=== PATIENT | female | born 1965 | race Caucasian/White ===

== ENCOUNTER 2016-11-18 17:36 | Emergency (ER) | payer MEDICARE, MEDICAID ==
--- NOTE | 2016-11-18 18:02 | ER Document Report ---
ED Medical Screen (RME) - General Chief Complaint: Chest Pain Stated Complaint: CHEST PAIN, BACK PAIN Notes: Patient is a 51-year-old female, past medical history PE (on Xarelto), HTN, seizures (compliant with Keppra), presents with intermittent left-sided chest pain and pressure that started this morning. She is also feeling like she is having difficulty catching her breath. PE: RRR. Lungs CTAB. No respiratory distress. Strong distal pulses. Left arm in splint (Ortho appointment tomorrow) I have greeted and performed a rapid initial assessment of this patient. A comprehensive ED assessment and evaluation of the patient, analysis of test results and completion of the medical decision making process will be conducted by additional ED providers. TRAVEL OUTSIDE OF THE [place] IN LAST 30 DAYS: No - Related Data Allergies/Adverse Reactions: meperidine HCl [From Demerol] Allergy (Verified 11/18/16 17:50) RASH, ITCHY AT SIGHT morphine [Morphine] Allergy (Verified 11/18/16 17:50) ITCHY AT SIGHT Past Medical History - Social History Family history: Reviewed & Not Pertinent - Past Medical History Cardiac Medical History: Reports: Hx Hypertension, Hx Pulmonary Embolism - x4 Renal/ Medical History: Denies: Hx Peritoneal Dialysis Psychiatric Medical History: Reports: Hx Bipolar Disorder, Hx Depression Past Surgical History: Reports: Hx Abdominal Surgery, Hx Bowel Surgery, Hx Section, Hx Cholecystectomy, Hx Gastric Bypass Surgery, Hx Orthopedic Surgery. Denies: Hx Hysterectomy - Immunizations Hx Diphtheria, Pertussis, Tetanus Vaccination: No Physical Exam - Vital signs Vitals: Temp Pulse Resp BP Pulse Ox 98.6 F 83 16 164/108 H 96 11/18/16 17:51 11/18/16 17:51 11/18/16 17:51 11/18/16 17:51 11/18/16 17:51 Course - Vital Signs Vital signs: Temp Pulse Resp BP Pulse Ox 98.6 F 83 16 164/108 H 96 11/18/16 17:51 11/18/16 17:51 11/18/16 17:51 11/18/16 17:51 11/18/16 17:51
[2016-11-18 18:55] LABS: ABSOLUTE BASOPHILS # (AUTO) 0.1 10^3/uL (0.0-0.2); ABSOLUTE LYMPHOCYTES (AUTO) 2.3 10^3/uL (0.5-4.7); ABSOLUTE MONOCYTES (AUTO) 0.9 10^3/uL (0.1-1.4); BASOPHILS % (AUTO) 0.5 % (0-2); EOSINOPHILS % (AUTO) 0.4 % (0-6); HEMATOCRIT 27.8 % (36.0-47.0); HEMOGLOBIN 8.4 g/dL (12.0-15.5); HGB HCT DIFFERENCE -2.6; LYMPHOCYTES % (AUTO) 17.2 % (13-45); MEAN CORPUSCULAR HEMOGLOBIN 22.4 pg (27.0-33.4); MEAN CORPUSCULAR VOLUME 75 fl (80-97); MONOCYTES % (AUTO) 6.7 % (3-13); RED BLOOD COUNT 3.73 10^6/uL (3.72-5.28); RED CELL DISTRIBUTION WIDTH 19.5 % (11.5-14.0); SEGMENTED NEUTROPHILS % (AUTO) 75.2 % (42-78); WHITE BLOOD COUNT 13.3 10^3/uL (4.0-10.5)
[2016-11-18 19:07] LABS: ALANINE AMINOTRANSFERASE 25 U/L (9-52); ALBUMIN 3.5 g/dL (3.5-5.0); ALKALINE PHOSPHATASE 127 U/L (38-126); ANION GAP 10 (5-19); ASPARTATE AMINO TRANSFERASE 17 U/L (14-36); BILIRUBIN,DIRECT 0.3 mg/dL (0.0-0.4); BILIRUBIN,TOTAL 0.3 mg/dL (0.2-1.3); BLOOD UREA NITROGEN 12 mg/dL (7-20); CALCIUM 8.7 mg/dL (8.4-10.2); CARBON DIOXIDE 20 mmol/L (22-30); CHLORIDE 110 mmol/L (98-107); CREATINE KINASE 37 U/L (30-135); CREATININE RESULT 0.93 mg/dL (0.52-1.25); GLUCOSE 94 mg/dL (75-110); LIPASE 92.1 U/L (23-300); POTASSIUM 4.2 mmol/L (3.6-5.0)
[2016-11-18 19:12] LABS: PARTIAL THROMBOPLASTIN TIME 25.8 SEC (23.5-35.8)
[2016-11-18 19:22] LABS: TROPONIN I < 0.012 ng/mL
[2016-11-18] MEDS ORDERED: LEVETIRACETAM 500 MG TABLET PO ONE (19:23)
[2016-11-18] MEDS ORDERED: DIAZEPAM INJ 10 MG/2 ML DISP.SYRIN IV ONE (19:24)
--- NOTE | 2016-11-18 19:27 | ER Document Report ---
ED General - General Chief Complaint: Chest Pain Stated Complaint: CHEST PAIN, BACK PAIN Time Seen by Provider: 11/18/16 18:08 Notes: Patient is a 51 year old male that comes to the ED for chief complaint of left- sided chest pain radiating down to the lower part of her left breast and towards the axilla and also in the left upper back. Symptoms started to become noticeable this morning, pain is persistent. She states that she feels a little bit short of breath as well. She denies injury to the area, nausea or vomiting, although she is wearing a splint on the left arm from a recent left arm fracture a few days ago. Follow-up with orthopedics tomorrow. She does have a history of pulmonary embolism 7, is compliant with Xarelto, also has a history of seizures and takes Keppra and Valium. She states she has had neither Keppra or Valium and she is "feeling kind of strange like a seizure might come on at the moment". She denies fever or chills, cough. S he denies history of MS, denies smoking. She denies Family history of MS. TRAVEL OUTSIDE OF THE [place] IN LAST 30 DAYS: No - Related Data Allergies/Adverse Reactions: meperidine HCl [From Demerol] Allergy (Verified 11/18/16 17:50) RASH, ITCHY AT SIGHT morphine [Morphine] Allergy (Verified 11/18/16 17:50) ITCHY AT SIGHT Past Medical History - General Information source: Patient - Social History Smoking Status: Never Smoker Chew tobacco use (# tins/day): No Frequency of alcohol use: Occasional Drug Abuse: Marijuana Family History: None Patient has suicidal ideation: No Patient has homicidal ideation: No - Past Medical History Cardiac Medical History: Reports: Hx Hypertension, Hx Pulmonary Embolism - x4 Neurological Medical History: Reports: Hx Seizures Renal/ Medical History: Denies: Hx Peritoneal Dialysis Psychiatric Medical History: Reports: Hx Bipolar Disorder, Hx Depression Past Surgical History: Reports: Hx Abdominal Surgery, Hx Bowel Surgery, Hx Section, Hx Cholecystectomy, Hx Gastric Bypass Surgery, Hx Orthopedic Surgery. Denies: Hx Hysterectomy - Immunizations Hx Diphtheria, Pertussis, Tetanus Vaccination: No Hx Pneumococcal Vaccination: 05/20/00 Review of Systems - Review of Systems Constitutional: No symptoms reported EENT: No symptoms reported Cardiovascular: See HPI Respiratory: No symptoms reported Gastrointestinal: No symptoms reported Genitourinary: No symptoms reported Female Genitourinary: No symptoms reported Musculoskeletal: See HPI Skin: No symptoms reported Hematologic/Lymphatic: No symptoms reported Neurological/Psychological: See HPI Physical Exam - Vital signs Vitals: Temp Pulse Resp BP Pulse Ox 98.6 F 83 16 164/108 H 96 11/18/16 17:51 11/18/16 17:51 11/18/16 17:51 11/18/16 17:51 11/18/16 17:51 Interpretation: Normal - General General appearance: Appears well In distress: None - HEENT Head: Normocephalic, Atraumatic Eyes: Normal Pupils: PERRL - Respiratory Respiratory status: No respiratory distress Chest status: Tender - tender over left pectoralis muscle extending toward the left axillary area, no induration or fluctuance, no other abnormal Breath sounds: Normal. No: Decreased air movement, Wheezing Chest palpation: Normal - Cardiovascular Rhythm: Regular Heart sounds: Normal auscultation, S1 appreciated, S2 appreciated Murmur: No - Abdominal Inspection: Normal Distension: No distension Bowel sounds: Normal Tenderness: Nontender Organomegaly: No organomegaly - Back Back: Normal, Nontender - Extremities General upper extremity: Nontender, Normal ROM, Normal strength, Other - Upper extremity with a splint over the entire forearm and up to the hand General lower extremity: Normal inspection, Nontender, Normal color, Normal ROM , Normal temperature, Normal weight bearing. No: González's sign - Neurological Neuro grossly intact: Yes Cognition: Normal Orientation: AAOx4 [place] Coma Scale Eye Opening: Spontaneous Joanie Coma Scale Verbal: Oriented Joanie Coma Scale Motor: Obeys Commands [place] Coma Scale Total: 15 Speech: Normal Motor strength normal: LUE, RUE, LLE, RLE Sensory: Normal - Psychological Associated symptoms: Normal affect, Normal mood - Skin Skin Temperature: Warm Skin Moisture: Dry Skin Color: Normal Course - Re-evaluation Re-evalutation: Symptoms ongoing over 12 hours, cardiac enzymes negative. Leukocytosis, mildly elevated specific gravity, bicarbonate slightly low. Giving IV fluids. No T- wave inversions or ST segment changes in consecutive leads, EKG shows sinus rhythm. There is tenderness with palpation over the left pectoral, axillary, and upper back areas. Patient is wearing a heavy splint on the left arm. I suspect this is related, suspect musculoskeletal soreness from the extra weight. I discussed this with patient, she insists that she is worried that she has additional clots or worsening findings and she has some intermittent shortness of breath at times. She states she is not comfortable with this answer. Chest x-ray is unremarkable. CTA performed, shows no acute or new abnormality. No concerning emergent pathology, patient is to continue on Xarelto, discussed orthopedic follow-up, discussed wearing of a sling, patient states she had a sling but she just is not wearing but now she will start wearing it because she realizes it will probably help. Patient discussed with Dr. Cuellar. He was also initially given seizure medications, discussed compliance with this , discussed compliance with her blood pressure medications which she admits she is also not taking, discussed the long-term effects of this. Patient states understanding and agreement. - Vital Signs Vital signs: Temp Pulse Resp BP Pulse Ox 98.6 F 83 20 165/102 H 97 11/18/16 17:51 11/18/16 17:51 11/19/16 01:01 11/19/16 01:01 11/19/16 01:01 - Laboratory Result Diagrams: 11/18/16 18:47 11/18/16 18:47 Laboratory results interpreted by me: 11/18/16 11/18/16 18:47 18:47 WBC 13.3 H Hgb 8.4 L Hct 27.8 L MCV 75 L MCH 22.4 L MCHC 30.0 L RDW 19.5 H Absolute Neutrophils 10.0 H Chloride 110 H Carbon Dioxide 20 L Alkaline Phosphatase 127 H Discharge - Discharge Clinical Impression: Chest wall pain Chest pain Qualifiers: Chest pain type: unspecified Qualified Code(s): R07.9 - Chest pain, unspecified Condition: Stable Disposition: HOME, SELF-CARE Additional Instructions: No new or concerning finding is seen with your imaging. Continue rehydration. Wear your sling, apply heat to your chest wall and back for soreness. Take your prescribed medications for both seizure and blood pressure as we discussed. Follow up with Orthopedics tomorrow. Return to the ED for any concerning or worsening symptoms.
[2016-11-18] MEDS ORDERED: DIAZEPAM INJ 10 MG/2 ML DISP.SYRIN ONE (19:44)
[2016-11-18 19:47] LABS: MAGNESIUM 2.1 mg/dL (1.6-2.3)
[2016-11-18 19:48] LABS: ALCOHOL < 10 mg/dL (NONE DETECTED)
[2016-11-18] MEDS ORDERED: ASPIRIN 81 MG TABLET, CHEWABLE PO ONE (19:54)
--- NOTE | 2016-11-18 20:05 | RADIOLOGY REPORT (SQ) ---
EXAM DESCRIPTION: CHEST SINGLE VIEW COMPLETED DATE/TIME: 11/18/2016 7:48 pm REASON FOR STUDY: chest pain COMPARISON: 2015 NUMBER OF VIEWS: One view. TECHNIQUE: Single frontal radiographic view of the chest acquired. LIMITATIONS: None. FINDINGS: LUNGS AND PLEURA: No opacities, masses or pneumothorax. No pleural effusion. MEDIASTINUM AND HILAR STRUCTURES: No masses. Contour normal. HEART AND VASCULAR STRUCTURES: Heart normal in size. Normal vasculature. BONES: No acute findings. HARDWARE: None in the chest. OTHER: No other significant finding. IMPRESSION: NO SIGNIFICANT RADIOGRAPHIC FINDING IN THE CHEST. TECHNICAL DOCUMENTATION: JOB ID: [id number] [employer]- All Rights Reserved
[2016-11-18] MEDS ORDERED: NORMAL SALINE 1000 ML 1,000 ML IV ONE (20:18)
[2016-11-18] MEDS ORDERED: OXYCODONE-ACETAMINOPHEN 5-325 MG TABLET PO ONE (20:46)
[2016-11-18] MEDS ORDERED: ONDANSETRON HCL INJ/PF 4 MG/2 ML SDV IV ONE (20:46)
--- NOTE | 2016-11-18 21:42 | EKG REPORT ---
SEVERITY:- BORDERLINE ECG - SINUS RHYTHM VENTRICULAR PREMATURE COMPLEX BORDERLINE T ABNORMALITIES, ANTERIOR LEADS : Confirmed by: Michelle Ramirez 18-Nov-2016 21:42:09
[2016-11-18 22:11] LABS: APPEARANCE,URINE SLIGHTLY-CLOUDY; BILIRUBIN,URINE NEGATIVE (NEGATIVE); CALCIUM OXALATE CRYSTALS,URINE TOO NUMEROUS TO CNT /HPF; GLUCOSE, URINE NEGATIVE (NEGATIVE); KETONES,URINE NEGATIVE (NEGATIVE); LEUKOCYTE ESTERASE,URINE NEGATIVE (NEGATIVE); NITRITE,URINE NEGATIVE (NEGATIVE); PROTEIN,URINE NEGATIVE (NEGATIVE); URINE SPECIFIC GRAVITY 1.021; UROBILINOGEN,URINE NEGATIVE mg/dL (<2.0)
--- NOTE | 2016-11-18 23:47 | RADIOLOGY REPORT (SQ) ---
EXAM DESCRIPTION: CTA CHEST COMPLETED DATE/TIME: 11/18/2016 11:31 pm REASON FOR STUDY: left sided chest pain, short of breath, hx PE COMPARISON: 2016 TECHNIQUE: CT scan of the chest performed using helical scanning technique with dynamic intravenous contrast injection. Images reviewed with lung, soft tissue and bone windows. Reconstructed coronal and sagittal MPR images reviewed. Additional 3 dimensional post-processing performed to develop Maximal Intensity Projection images (NM P). All images stored on PACS. All CT scanners at this facility use dose modulation, iterative reconstruction, and/or weight based d osing when appropriate to reduce radiation dose to as low as reasonably achievable (ALARA). [facility]: Dose Right [facility]: CareDose [facility]: Dose Right [facility]: Teradose 4D [facility]: AntCor CONTRAST TYPE AND DOSE: contrast/concentration: Isovue 370.00 mg/ml; Total Contrast Delivered: 75.0 ml; Total Saline Delivered: 110.0 ml RENAL FUNCTION: Creatinine 0.9 RADIATION DOSE: Up-to-date CT equipment and radiation dose reduction techniques were employed. CTDIv ol: 13.2 - 19.2 mGy. DLP: 689 mGy-cm. . LIMITATIONS: None. FINDINGS: LUNGS AND PLEURA: Small dependent bilateral pleural effusions. Mild areas of subsegmental atelectasis. AORTA AND GREAT VESSELS: No aneurysm or dissection. HEART: Mild pericardial fluid. PULMONARY ARTERIES: No new thrombus. Minimal persistent chronic thrombus in the left lower lobe. Th is looks nonprogressive. HILAR AND MEDIASTINAL STRUCTURES: No identified masses or abnormal nodes. HARDWARE: None in the chest. UPPER ABDOMEN: No developing mass or evidence of bowel obstruction. THYROID AND OTHER SOFT TISSUES: No masses. No adenopathy. BONES: No acute or significant finding. 3D MIPS: Confirm above findings. OTHER: No other significant finding. IMPRESSION: 1. No acute PE. 2. 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 TECHNICAL DOCUMENTATION: JOB ID: [id number] Quality ID # [id number]: Final reports with documentation of one or more dose reduction techniques (e.g., Au tomated exposure control, adjustment of the mA and/or kV according to patient size, use of iterative reconstruction technique) 2010 [employer]- All Rights Reserved
[2016-11-19] MEDS ORDERED: HYDROCODONE/ACETAMINOPHEN 5-325 MG 6 TAB/DSPK PO PRN (00:08)
[2016-11-19 01:17] VITALS: BP 165/102
== END 2016-11-19 01:17 | disposition home or self-care (01) ==
LOC: ER 17:36
DX: R07.89 Other chest pain (principal); I26.99 Other pulmonary embolism without acute cor pulmonale; Z79.01 Long term (current) use of anticoagulants; D72.829 Elevated white blood cell count, unspecified; R06.02 Shortness of breath; S42.302D Unspecified fracture of shaft of humerus, left arm, subsequent encounter for fracture with routine healing; X58.XXXD Exposure to other specified factors, subsequent encounter; I10 Essential (primary) hypertension; T50.906A Underdosing of unspecified drugs, medicaments and biological substances, initial encounter; T42.4X6A Underdosing of benzodiazepines, initial encounter; T42.6X6A Underdosing of other antiepileptic and sedative-hypnotic drugs, initial encounter; Z91.14 Patient's other noncompliance with medication regimen; Z79.899 Other long term (current) drug therapy; Z88.5 Allergy status to narcotic agent
CPT/HCPCS: 93005; 99285; 96361; 96374; 96375; 36415; 80307; 82550; 83690; 83735; 85025; 85610; 85730; 80053; 81001; 84484; 83880; 71010; 71275; 93010; A9270 ×4; J3360; J2405; J7030

== ENCOUNTER 2016-12-09 15:51 | Emergency (ER) | payer MEDICARE, MEDICAID ==
[2016-12-09] MEDS ORDERED: ASPIRIN 81 MG TABLET, CHEWABLE PO ONE (16:16)
--- NOTE | 2016-12-09 16:34 | RADIOLOGY REPORT (SQ) ---
EXAM DESCRIPTION: CHEST SINGLE VIEW COMPLETED DATE/TIME: 12/09/2016 4:25 pm REASON FOR STUDY: cp COMPARISON: February 2016 EXAM PARAMETERS: NUMBER OF VIEWS: One view. TECHNIQUE: Single frontal radiographic view of the chest acquired. RADIATION DOSE: NA LIMITATIONS: None. FINDINGS: LUNGS AND PLEURA: No opacities, masses or pneumothorax. No pleural effusion. MEDIASTINUM AND HILAR STRUCTURES: No masses. Contour normal. HEART AND VASCULAR STRUCTURES: Heart normal in size. Normal vasculature. BONES: No acute findings. HARDWARE: None in the chest. OTHER: No other significant finding. IMPRESSION: NO ACUTE RADIOGRAPHIC FINDING IN THE CHEST. TECHNICAL DOCUMENTATION: JOB ID: [id number]
[2016-12-09 17:42] LABS: APPEARANCE,URINE SLIGHTLY-CLOUDY; BILIRUBIN,URINE NEGATIVE (NEGATIVE); GLUCOSE, URINE NEGATIVE (NEGATIVE); KETONES,URINE NEGATIVE (NEGATIVE); LEUKOCYTE ESTERASE,URINE TRACE (NEGATIVE); NITRITE,URINE NEGATIVE (NEGATIVE); PROTEIN,URINE NEGATIVE (NEGATIVE); URINE SPECIFIC GRAVITY 1.012; UROBILINOGEN,URINE NEGATIVE mg/dL (<2.0)
[2016-12-09] MEDS ORDERED: NITROGLYCERIN 0.4 MG/TAB 25 TAB/BOTTLE SL PRN (18:36)
[2016-12-09 18:45] LABS: ABSOLUTE BASOPHILS # (AUTO) 0.1 10^3/uL (0.0-0.2); ABSOLUTE EOSINOPHILS # (AUTO) 0.1 10^3/uL (0.0-0.6); ABSOLUTE LYMPHOCYTES (AUTO) 2.5 10^3/uL (0.5-4.7); ABSOLUTE MONOCYTES (AUTO) 0.7 10^3/uL (0.1-1.4); BASOPHILS % (AUTO) 1.6 % (0-2); HEMATOCRIT 29.3 % (36.0-47.0); HEMOGLOBIN 9.1 g/dL (12.0-15.5); LYMPHOCYTES % (AUTO) 26.4 % (13-45); MEAN CORPUSCULAR HEMOGLOBIN 23.4 pg (27.0-33.4); MEAN CORPUSCULAR HGB CONC 31.1 g/dL (32.0-36.0); MEAN CORPUSCULAR VOLUME 75 fl (80-97); MONOCYTES % (AUTO) 7.8 % (3-13); RED BLOOD COUNT 3.89 10^6/uL (3.72-5.28); RED CELL DISTRIBUTION WIDTH 18.9 % (11.5-14.0); SEGMENTED NEUTROPHILS % (AUTO) 63.2 % (42-78); WHITE BLOOD COUNT 9.5 10^3/uL (4.0-10.5)
[2016-12-09] MEDS ORDERED: KETOROLAC TROMETHAMINE INJ/PF 30 MG/1 ML SDV IV ONE (18:50)
[2016-12-09] MEDS ORDERED: NORMAL SALINE 1000 ML 1,000 ML IV ONE (18:50)
--- NOTE | 2016-12-09 18:50 | ER Document Report ---
ED General - General Chief Complaint: Weakness Stated Complaint: WEAKNESS Time Seen by Provider: 12/09/16 18:20 Notes: Patient is a 51-year-old female with a past medical history of recurrent pulmonary emboli, currently on rivaroxaban who presents complaining of generalized weakness for the past 4 days. Patient states that she is unable to ambulate, sit up in bed, or perform any of her activities of daily living secondary to being so weak. She denies a history of similar symptoms in the past. Nothing improves or worsens her symptoms. Of note, patient is easily able to sit up in bed when I asked her to do so on initial history taking. She is also able to lift her head, arms, and even stand at the bedside during initial history taking without any difficulty whatsoever. She has not seen her primary care doctor regarding today's concerns. She also notes that she has a chronic left-sided chest pain below her breast. States that this is been present for "weeks" is not changed today and is not the reason for her visit to the emergency department. 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 Nothing improves or worsens that pain and she denies any radiation of that pain into her arms, jaw or back. She denies any associated shortness of breath nausea or vomiting. TRAVEL OUTSIDE OF THE [place] IN LAST 30 DAYS: No - Related Data Allergies/Adverse Reactions: meperidine HCl [From Demerol] Allergy (Verified 11/18/16 17:50) RASH, ITCHY AT SIGHT morphine [Morphine] Allergy (Verified 11/18/16 17:50) ITCHY AT SIGHT Past Medical History - General Information source: Patient - Social History Smoking Status: Never Smoker Chew tobacco use (# tins/day): No Frequency of alcohol use: Occasional Drug Abuse: None Lives with: Spouse/Significant other Family History: Reviewed & Not Pertinent - Past Medical History Cardiac Medical History: Reports: Hx Hypertension, Hx Pulmonary Embolism - x4 Neurological Medical History: Reports: Hx Seizures Renal/ Medical History: Denies: Hx Peritoneal Dialysis Psychiatric Medical History: Reports: Hx Bipolar Disorder, Hx Depression Past Surgical History: Reports: Hx Abdominal Surgery, Hx Bowel Surgery, Hx Section, Hx Cholecystectomy, Hx Gastric Bypass Surgery, Hx Orthopedic Surgery. Denies: Hx Hysterectomy - Immunizations Hx Diphtheria, Pertussis, Tetanus Vaccination: No Hx Pneumococcal Vaccination: 05/20/00 Review of Systems - Review of Systems Notes: Constitutional: Negative for fever. HENT: Negative for sore throat. Eyes: Negative for visual changes. Cardiovascular: Positive for chest pain. Respiratory: Negative for shortness of breath. Gastrointestinal: Negative for abdominal pain, vomiting or diarrhea. Genitourinary: Negative for dysuria. Musculoskeletal: Negative for back pain. Skin: Negative for rash. Neurological: Negative for headaches, weakness or numbness. 10 point ROS negative except as marked above and in HPI. Physical Exam - Vital signs Vitals: Temp Pulse Resp BP Pulse Ox 99.2 F 83 17 123/87 H 99 12/09/16 15:59 12/09/16 15:59 12/09/16 15:59 12/09/16 15:59 12/09/16 15:59 Interpretation: Normal Notes: PHYSICAL EXAMINATION: GENERAL: Well-appearing, well-nourished and in no acute distress. HEAD: Atraumatic, normocephalic. EYES: Pupils equal round and reactive to light, extraocular movements intact, sclera anicteric, conjunctiva are normal. ENT: nares patent, oropharynx clear without exudates. Moist mucous membranes. NECK: Normal range of motion, supple without lymphadenopathy LUNGS: Breath sounds clear to auscultation bilaterally and equal. No wheezes rales or rhonchi. HEART: Regular rate and rhythm without murmurs ABDOMEN: Soft, nontender, normoactive bowel sounds. No guarding, no rebound. No masses appreciated. EXTREMITIES: Normal range of motion, no pitting or edema. No cyanosis. NEUROLOGICAL: Face symmetric. Tongue protrudes midline. Extraocular motions intact. Pupils are 2 mm and equally reactive. Normal speech, normal gait. 5 out of 5 strength in both the distal and proximal upper and lower extremities bilaterally. Sensation is grossly intact throughout. Finger to nose testing normal. Pronator drift normal. PSYCH: Normal mood, normal affect. SKIN: Warm, Dry, normal turgor, no rashes or lesions noted. Course - Re-evaluation Re-evalutation: 12/09/16 18:50 Presentation and an overall well-appearing patient in no acute distress who complains of generalized weakness. At time of evaluation, patient's vitals are within normal limits. Contrary to patient's report, she very clearly can ambulate, sit up in bed and perform activities that she states she cannot do. Specifically, asked patient how over the past several days she has been getting to the restroom and she does admit that she has been ambulating with assistance. Physical examination without focal findings. No neurologic deficits. They deny any chest pain, shortness of breath, nausea, vomiting, or diarrhea. No dysuria or fever. Basic laboratories including and urinalysis are unremarkable. Troponin is also negative. Patient does complain of recurrent left-sided chest pain which is chronic in nature. She had a CTA of her chest less than 1 month ago for the same concern which was noted to be normal given her history of recurrent PEs. She has no tachycardia, tachypnea, hypoxemia, and is not ready on rivaroxaban making a diagnosis of a new acute PE highly unlikely. Low clinical suspicion for ACS, occult pneumonia, acute intra- abdominal pathology, stroke, or transient ischemic attack based on clinical history, examination, and laboratories. They have tolerated oral intake without difficulty. Of note, patient was disappointed when I gave her Toradol and acetaminophen for her pain. She was asking for "something stronger" repeatedly through the IV. I declined to provide this medication informed her there is no indication for such medication at this time. I have discussed the importance of close outpatient follow-up as well as the need to return to emergency room immediately should they have any new or worsening symptoms. At this time will discharge with return precautions and follow-up recommendations. Verbal discharge instructions given a the bedside and opportunity for questions given. Medication warnings reviewed. Patient is in agreement with this plan and has verbalized understanding of return precautions and the need for primary care follow-up in the next 24-72 hours. - Vital Signs Vital signs: Temp Pulse Resp BP Pulse Ox 98.7 F 74 18 119/75 99 12/09/16 20:13 12/09/16 20:13 12/09/16 20:13 12/09/16 20:13 12/09/16 20:13 - Laboratory Result Diagrams: 12/09/16 18:30 12/09/16 18:30 Laboratory results interpreted by me: 12/09/16 12/09/16 12/09/16 17:15 18:30 18:30 Hgb 9.1 L Hct 29.3 L MCV 75 L MCH 23.4 L MCHC 31.1 L RDW 18.9 H Alkaline Phosphatase 148 H Ur Leukocyte Esterase TRACE H - Diagnostic Test Radiology reviewed: Image reviewed, Reports reviewed Radiology results interpreted by me: 12/09/16 19:30 Chest x-ray: No acute infiltrate or pneumothorax - EKG Interpretation by Me Additional EKG results interpreted by me: 12/09/16 19:30 Normal sinus rhythm. Rate 66. No ST elevations or depressions. QTC is 445. Discharge - Discharge Clinical Impression: Generalized weakness Fatigue Qualifiers: Fatigue type: unspecified Qualified Code(s): R53.83 - Other fatigue Condition: Good Disposition: HOME, SELF-CARE Additional Instructions: Your labs, chest x-ray, urine studies are all normal today. The exact cause of your symptoms is unclear but may be related to you being dehydrated. Please follow-up with your primary care doctor regarding today's concerns. At this time will discharge with return precautions and follow-up recommendations. Verbal discharge instructions given a the bedside and opportunity for questions given. Medication warnings reviewed. Patient is in agreement with this plan and has verbalized understanding of return precautions and the need for primary care follow-up in the next 24-72 hours.
[2016-12-09 18:58] LABS: ALANINE AMINOTRANSFERASE 39 U/L (9-52); ALKALINE PHOSPHATASE 148 U/L (38-126); ANION GAP 13 (5-19); ASPARTATE AMINO TRANSFERASE 27 U/L (14-36); BILIRUBIN,DIRECT 0.3 mg/dL (0.0-0.4); BILIRUBIN,TOTAL 0.3 mg/dL (0.2-1.3); BLOOD UREA NITROGEN 9 mg/dL (7-20); CARBON DIOXIDE 22 mmol/L (22-30); CHLORIDE 106 mmol/L (98-107); CREATINE KINASE 45 U/L (30-135); CREATININE RESULT 0.92 mg/dL (0.52-1.25); GLUCOSE 88 mg/dL (75-110); POTASSIUM 3.7 mmol/L (3.6-5.0); SODIUM 141.1 mmol/L (137-145); TOTAL PROTEIN 7.4 g/dL (6.3-8.2)
[2016-12-09 19:10] LABS: CREATINE KINASE MB 0.31 ng/mL (<4.55)
[2016-12-09 19:15] LABS: TROPONIN I < 0.012 ng/mL
[2016-12-09] MEDS ORDERED: ACETAMINOPHEN 325 MG TABLET PO ONE (19:35)
[2016-12-09 20:15] VITALS: BP 119/75
--- NOTE | 2016-12-10 13:59 | EKG REPORT ---
SEVERITY:- BORDERLINE ECG - SINUS RHYTHM BORDERLINE LEFT AXIS DEVIATION BORDERLINE T ABNORMALITIES, DIFFUSE LEADS : Confirmed by: Gloria Meza MD 10-Dec-2016 13:58:49
== END 2016-12-09 20:13 | disposition home or self-care (01) ==
LOC: ER 15:51
DX: R53.1 Weakness (principal); R53.83 Other fatigue; I10 Essential (primary) hypertension; Z86.711 Personal history of pulmonary embolism; Z90.49 Acquired absence of other specified parts of digestive tract; Z98.84 Bariatric surgery status
CPT/HCPCS: 93005; 99285; 96361; 96374; 36415; 82553; 82550; 85025; 80053; 81001; 84484; 71010; 93010; A9270 ×2; J1885; J7030